=== PATIENT | female | born 1980 | race Caucasian/White ===

== ENCOUNTER 2016-09-14 20:59 | Emergency (ER) | payer MEDICAID | END 2016-09-14 21:21 | disposition left against medical advice (07) | LOC: JP.ED 20:59 | DX: Z53.21 Procedure and treatment not carried out due to patient leaving prior to being seen by health care provider (principal) ==

== ENCOUNTER 2017-04-18 18:55 | Emergency (ER) | payer MEDICAID ==
[2017-04-18] MEDS ORDERED: Diphtheria,Pertussis(Acell),Tetanus Vaccine 0.5 ML SDV IM ONE (19:54)
[2017-04-18] MEDS ORDERED: Bacitracin Oint 1 GM U/D Packet TOP ONE (19:55)
--- NOTE | 2017-04-18 19:57 | EDM.PDOC ---
ED HPI GENERAL MEDICAL PROBLEM - General Chief Complaint: Laceration Stated Complaint: L PINKY CUT Time Seen by Provider: 04/18/17 19:56 Source of Information: Reports: Patient History Limitations: Reports: No Limitations - History of Present Illness INITIAL COMMENTS - FREE TEXT/NARRATIVE: pt cut her left small finger while cutting chicken. Onset: Today Duration: Hour(s): Location: Reports: Upper Extremity, Left Associated Symptoms: Reports: No Other Symptoms left 5th finger Pain Score (Numeric/FACES): 8 - Related Data Allergies Allergy/AdvReac Type Severity Reaction Status Date / Time etanercept [From Enbrel] Allergy Other Verified 04/18/17 19:42 Sulfa (Sulfonamide Allergy Hives Verified 04/18/17 19:42 Antibiotics) Home Meds: Home Meds Dextroamphetamine/Amphetamine [Adderall 10 mg Tablet] 10 mg PO DAILY 04/18/17 [ History] Folic Acid 0.4 mg PO DAILY 04/18/17 [History] Past Medical History Psychiatric History: Reports: ADHD Hematologic History: Reports: Folic Acid Oncologic (Cancer) History: Reports: Uterine - Past Surgical History GI Surgical History: Reports: Cholecystectomy Female Surgical History: Reports: Tubal Ligation Oncologic Surgical History: Reports: Other (See Below) Other Oncologic Surgeries/Procedures: hysterectomy Social & Family History - Family History Family Medical History: Unobtainable - Tobacco Use Smoking Status *Q: Current Every Day Smoker Years of Tobacco use: 20 Packs/Tins Daily: 1 Second Hand Smoke Exposure: Yes - Caffeine Use Caffeine Use: Reports: Coffee - Recreational Drug Use Recreational Drug Use: No ED ROS GENERAL - Review of Systems Review Of Systems: See Below Constitutional: Reports: No Symptoms HEENT: Reports: No Symptoms Respiratory: Reports: No Symptoms Cardiovascular: Reports: No Symptoms Endocrine: Reports: No Symptoms GI/Abdominal: Reports: No Symptoms : Reports: No Symptoms Musculoskeletal: Reports: Other ( pt has a cut on the rt small finger) ED EXAM, SKIN/RASH Exam: See Below Text/Narrative:: pt was cutting chicken and she has a 1 inch cut up and down on the left small finger. Exam Limited By: No Limitations General Appearance: Alert Extremities: Other (Pt has a 1 inch cut on the left small finger. This goes up and down. She has normal sensation and normal motion of the tip of the finger. ) Neurological: Alert, Oriented, Normal Cognition Course - Vital Signs Last Recorded V/S: Last Vital Signs Temp 35.9 C 04/18/17 19:41 Pulse 85 04/18/17 19:41 Resp 15 04/18/17 19:41 BP 133/87 04/18/17 19:41 Pulse Ox 99 04/18/17 19:41 - Orders/Labs/Meds Orders: Active Orders 24 hr Category Date Time Status Vaccines to be Administered [RC] PER UNIT ROUTINE Care 04/18/17 19:54 Active Meds: Medications Discontinued Medications Generic Name Dose Route Start Last Admin Trade Name Julia PRN Reason Stop Dose Admin Bacitracin 1 dose 04/18/17 19:55 04/18/17 20:01 Bacitracin Oint 1 Gm TOP 04/18/17 19:56 1 dose ONETIME ONE Administration Diphtheria/Tetanus/Acell Pertussis 0.5 ml 04/18/17 19:54 04/18/17 20:02 Adacel IM 04/18/17 19:55 0.5 ml .ONCE ONE Administration Lidocaine HCl 5 ml 04/18/17 19:54 04/18/17 20:01 Xylocaine-Mpf 1% INJECT 04/18/17 19:55 5 ml ONETIME ONE Administration - Re-Assessments/Exams Free Text/Narrative Re-Assessment/Exam: 04/18/17 20:49 The area was cleansed well, infiltrated with 1% lidocaine the wound was closed with 5-0 chromic and 5-0 prolene. It was dressed with bacatracin. Departure - Departure Time of Disposition: 20:51 Disposition: Home, Self-Care 01 Condition: Fair Clinical Impression: Laceration - Discharge Information Referrals: Ceci Macedo MD [Primary Care Provider] - Forms: ED Department Discharge Care Plan Goals: keep dry, no further ointments, keep covered, motrin 600mg q6h prn for pain norco 5/325 q6h #2 sr in 7-8 days - My Orders Last 24 Hours: My Active Orders 04/18/17 19:54 Vaccines to be Administered [RC] PER UNIT ROUTINE - Assessment/Plan Last 24 Hours: My Active Orders 04/18/17 19:54 Vaccines to be Administered [RC] PER UNIT ROUTINE
== END 2017-04-18 21:00 | disposition home or self-care (01) ==
LOC: JP.ED 18:55
DX: S61.217A Laceration without foreign body of left little finger without damage to nail, initial encounter (principal); F17.210 Nicotine dependence, cigarettes, uncomplicated; F90.9 Attention-deficit hyperactivity disorder, unspecified type; Z79.899 Other long term (current) drug therapy; Z88.2 Allergy status to sulfonamides; Z88.8 Allergy status to other drugs, medicaments and biological substances; W45.8XXA Other foreign body or object entering through skin, initial encounter; Z23 Encounter for immunization
CPT/HCPCS: 12001; 90471; 90715; 99283-25

== ENCOUNTER 2024-07-31 21:02 | Emergency (ER) | payer MEDICAID ==
[2024-07-31] MEDS: Cephalexin 250 MG Cap PO ONE (22:21)
== END 2024-07-31 22:22 | disposition home or self-care (01) ==
LOC: JP.ED 21:02
DX: L03.012 Cellulitis of left finger (principal); Z88.2 Allergy status to sulfonamides; Z88.8 Allergy status to other drugs, medicaments and biological substances; Z87.891 Personal history of nicotine dependence; Z90.49 Acquired absence of other specified parts of digestive tract
CPT/HCPCS: 99283; A9270